=== PATIENT | female | born 1965 | race Caucasian/White ===

== ENCOUNTER 2017-08-18 18:40 | Inpatient (IN) | payer OTHER ==
[~2017-08-18] VITALS: Ht 162.6 cm; Wt 102.2 kg
--- NOTE | ~2017-08-18 | EKG ---
[place] [address] [facility] [employer] [place] [address] ELECTROCARDIOGRAM REPORT Name: KATHLEEN BOLANOS Room #: 241-P ADM IN M.R.#: [id number] Admission: 08/18/17 Attend Phys: Reji Quintero DO Discharge: Date of : 65 Report #: [id number] THIS REPORT FOR: //name// [facility] ED Test Date: 2017-08-18 Test Time: 18:51:47 Pat Name: KATHLEEN BOLANOS Department: Room: 241 Gender: F Foot Tender: Aviva BLUM : 1965 Requested By: Cayden Denise Order Number: [id number] MD: Galileo Crystal Measurements Intervals [place] Rate: 99 P: 56 VT: 165 QRS: 29 QRSD: 88 T: 26 QT: 373 QTc: 479 Interpretive Statements Sinus rhythm Poor R wave progression No previous ECG available for comparison Electronically Signed On 08-19-2017 14:29:03 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
--- NOTE | ~2017-08-18 | S ---
[facility] [place] [address] SURGICAL PATH RPT PROCEDURE Name: AMISHA BOLANOS Room #: [facility]- DIS IN M.R.#: [id number] Admission: 08/18/17 Date of : 65 Discharge: 08/26/17 Report #: [id number] Path Case #: [id number] PATHOLOGY REPORT COLLECTION DATE: 08/25/2017 RECEIVED DATE: 08/27/2017 SUBMITTING PHYS: Dr. Reji Quintero OTHER PHYS: SPECIMEN(S) RECEIVED: A.Peripheral smear * * * * * * * * * * * * FINAL DIAGNOSIS: Peripheral blood smear: - Severe macrocytic anemia, left shifted granulocytes and severe thrombocytopenia. (See comment) COMMENT: Overall, the peripheral blood has severe macrocytic anemia, left shifted granulocytes and severe thrombocytopenia. The WBC count is within the normal reference range. The etiology of the findings is unclear based entirely on slide review. Potential causes of macrocytic anemia include vitamin B12 and/or folate deficiency, liver and/or thyroid disease, and primary bone marrow disorders. Potential causes of thrombocytopenia include immune and non-immune platelet destruction, drug and/or toxic exposures, blood loss, dilutional and primary bone marrow disorders. The findings may be related to the patient's underlying medical condition (alcohol withdrawal and/or septic shock). Correlation with the clinical history and additional laboratory data is recommended. (CLW:sherry; 08/28/2017) PATHOLOGIST: Katharina Li M.D. REPORT ELECTRONICALLY SIGNED BY: Katharina Li M.D. DATE/TIME: 08/28/2017 16:46 * * * * * * * * * * * * MICROSCOPIC DESCRIPTION: CBC Data (08/25/17): WBC 4,800 /uL, RBC 1.84, hemoglobin 6.5 g/dL, hematocrit 20.1%, MCV 109.1 fL, MCH 35.3 pg, MCHC 32.3 g/dL, RDW 29%. Platelet count 46,000 /uL. Manual white blood cell differential: segs 61%, bands 7%, lymphs 18%, monos 5%, metas 3%, myelos 4%, pros 2%, and 2 NRBCs/100 white blood cells. Peripheral Blood Smear: Cytomorphological examination of the Newman's stained peripheral blood smear confirms the provided data. Red blood cells show severe [facility] [address] [place] [address] SURGICAL PATH RPT PROCEDURE Name: AMISHA BOLANOS Room #: 241-P DIS IN M.R.#: [id number] Admission: 08/18/17 Date of : 65 Discharge: 08/26/17 Report #: [id number] Path Case #: [id number] macrocytic anemia with moderate anisocytosis. No significant anisopoikilocytosis is identified. No schistocytes or microspherocytes are seen. White blood cells are predominantly segmented neutrophils and have mild reactive changes. There is a mild left shift with scattered myelocytes and metamyelocytes noted on scanning. No blasts or Shanon rods are seen on scanning. Lymphocytes are predominantly small, round, and mature appearing with condensed chromatin and scant cytoplasm with admixed large granular lymphocytes and reactive appearing lymphocytes. On scanning, no markedly atypical lymphoid cells are seen. Monocytes are mature. Platelets are markedly decreased in number and mainly normal in morphology with rare larger platelets noted. Rare nucleated red blood cells are seen. (CLW:sherry; 08/28/2017) GROSS PATHOLOGY: Received are three Newman's stained peripheral blood smears all labeled, "Long, Amisha." (CLW:mgr; 08/28/2017) CLINICAL HISTORY: 52-year-old woman with anemia and thrombocytopenia. Morphologic review of the peripheral blood smear is requested by the patient's physician. INITIAL CPT CODE(S): A; [place] Professional services performed by [facility] [employer] [facility] at [facility] [address], [place] [address] Technical services performed by [facility] at [address] [place] [address], [address], [place] [address]. [facility] [place] [address] PHONE: [phone] DIRECTOR: Ignacio Melendez M.D. * * * END OF REPORT * * *
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
--- NOTE | ~2017-08-18 | HC ---
[facility] [place] [address] CONSULTATION Name: KATHLEEN BOLANOS Room #: [facility]- ADM IN M.R.#: [id number] Admission: 08/18/17 Attend Phys: Reji Quintero DO Discharge: Date of : 65 Report #: [id number] THIS REPORT FOR: //name// CC: JANICE physician/PCP Reji Quintero TYPE OF REPORT: Infectious diseases consultation. REASON FOR CONSULTATION: I was asked to evaluate concerning shock and concern for underlying sepsis. HISTORY OF PRESENT ILLNESS: The patient is a 52-year old underlying history of alcohol abuse, depression who presented on 08/18/2017 with decreased mental status. EMS was brought to the house where she was found on the floor with a blood glucose of 36, was brought in through EMS, confused and lethargic. [place] most consistent with alcohol withdrawal syndrome. Drug screen showed benzodiazepines, but alcohol level was undetectable as well as Tylenol level. She was icteric and bilirubin was elevated along with her ammonia. Has had workup before for episodes of pancreatitis and stated that she did not have cirrhosis. She also smokes cigarettes. No travel. No injury. No gross aspiration noted. Since her hospitalization, she has developed more hypotension and hypothermia. Now on a warming blanket. Receiving bicarbonate drip. The patient would arouse, but could not give me any details of her history or review of systems. The patient now has a nasal cannula in place for 3 liters of oxygen supplementation. She has a right IJ catheter and indwelling Onofre catheter. There has been no nausea, vomiting or diarrhea reported. Her urine output has been reasonable up to this point in time. She has been tachycardic and blood pressure was low today and has received IV fluids. White count has been normal. Blood culture so far negative. Urinalysis had bacteriuria but urine culture was only with mixed jalil. ALLERGIES: None known. MEDICATIONS: As noted on her MAR, which were reviewed. She was started on vancomycin and Zosyn this evening. Previously was on metoprolol, losartan, Benadryl and Neurontin. PAST MEDICAL HISTORY: Alcoholism, pancreatitis, acute kidney injury, tobacco abuse, hypertension, depression and anxiety. FAMILY HISTORY: Heart disease and polymyositis. SOCIAL HISTORY: She smokes and drinks, lives with her . PHYSICAL EXAMINATION: [facility] [address] [facility] [place] [address] CONSULTATION Name: KATHLEEN BOLANOS Room #: [address] [place] [address] IN M.R.#: [id number] Admission: 08/18/17 Attend Phys: Reji Quintero DO Discharge: Date of : 65 Report #: [id number] VITAL SIGNS: Pulse is 124 and regular, blood pressure 98/70, CVP 8 on 3 liters of oxygen per nasal cannula with an ABG showing pO2 of 70, pCO2 of 28 and pH 7.38. She has a right IJ catheter and Onofre catheter. GENERAL: She is icteric. She is somnolent. She does arouse and will follow simple commands. HEENT: Mouth was dry. NECK: Supple. LUNGS: Clear. HEART: Tachycardic and regular. ABDOMEN: Soft and nontender. No hepatosplenomegaly or mass. EXTREMITIES: Unremarkable other than some bruising to her right leg. LABORATORY STUDIES: Sodium 144, potassium 2.9, bicarbonate 20 and creatinine 2. AST 355, ALT 175, alkaline phosphatase 251, bilirubin 9.6, GGTP 86 and albumin 1.5. INR of 3. Ammonia 69 and lactate 1.3. Lipase normal. Drug screen positive for benzodiazepines, negative for alcohol. Hemoglobin 7.5; platelet count 56,000; white count 3.1; MCV 110; segs 82% and bands 1%. Urinalysis, rare wbc's, many bacteria. Urine culture, mixed jalil. Blood cultures negative. Ultrasound of the abdomen showed fatty liver, small amount of fluid around the liver and small right kidney. RADIOLOGICAL DATA: CT of the head was negative. Chest x-ray shows left lower lobe atelectasis and infiltrate. IMPRESSION: A 52-year old presents with alcohol withdrawal syndrome, possibly aspiration to the left lower lobe. Now with shock, question whether this is related to infection. So far, cultures remain negative. The patient also has acute renal failure, metabolic acidosis and encephalopathy, which is toxic metabolic. Hepatic failure seems most likely driving this. RECOMMENDATIONS: We will continue broad antibiotic coverage, pending repeat cultures of blood. Follow chest x-ray. Pulmonary hygiene. Aspiration precautions. GI assistance. With her elevated bilirubin and INR, may need to consider further hepatic intervention. <ELECTRONICALLY SIGNED> By: Cayden Figueroa MD 08/22/17 0811 1843 2243 Cayden Figueroa MD /nt
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
--- NOTE | ~2017-08-18 | 2DMMODE ---
[facility] [address] [place] [address] 2 D/M-MODE ECHOCARDIOGRAM Name: KATHLEEN BOLANOS Room #: 241-P ADM IN M.R.#: [id number] Admission: 08/18/17 Attend Phys: Reji Quintero, Discharge: Date of : 65 Date of Service: 08/22/17 1155 Report #: [id number] THIS REPORT FOR: //name// APPROVED REPORT Study performed: 08/22/2017 12:11:13 EXAM: Comprehensive 2D, Doppler, and color-flow Echocardiogram Patient Location: ICU Room #: 241 Status: routine BSA: 2.02 HR: 115 bpm BP: 93/61 mmHg Rhythm: Tachycardia Other Information Study Quality: Adequate Indications Hypotension, hypoxemia, tachycardia, alcohol withdrawl. Hx: ETOH and tobacco abuse. HTN. 2D Dimensions RVDd: 28.01 mm LVEF(%): 67.25 (>50%) IVSd: 10.86 (7-11mm) LVOT Diam: 18.99 (18-24mm) LVDd: 33.39 mm PWd: 8.48 (7-11mm) Ascending Ao: 31.29 (22-36mm) LVDs: 21.27 (25-40mm) Aortic Root: 29.38 mm Cedeño's LVEF: 67.25 % Volumes Left Atrial Volume (Systole) Single Plane 4CH: 40.04 mL Single Plane 2CH: 46.07 mL LA ESV Index: 22.00 mL/m2 Aortic Valve AoV Peak Bulmaro.: 2.50 m/s AO Peak Gr.: 24.98 mmHg Mitral Valve E/A Ratio: 0.5 MV Decel. Time: 220.08 ms MV E Max Bulmaro.: 0.70 m/s [facility] [employer] [address] [place] [address] 2 D/M-MODE ECHOCARDIOGRAM Name: KATHLEEN BOLANOS Room #: [address] [place] [address] [place] [facility].#: [id number] Admission: 08/18/17 Attend Phys: Reji Quintero, Discharge: Date of : 65 Date of Service: 08/22/17 1155 Report #: [id number] MV A Bulmaro.: 1.44 m/s MV PHT: 63.82 ms IVRT: 72.66 ms Pulmonary Valve PV Peak Bulmaro.: 1.29 m/s PV Peak Gr.: 6.61 mmHg Tricuspid Valve TR Peak Bulmaro.: 2.75 m/s TR Peak Gr.: 30.33 mmHg Left Ventricle The left ventricle is normal size. There is normal LV segmental wall motion. There is normal left ventricular wall thickness. Left ventricular systolic function is hyperdynamic. LVEF is >70%. Mild diastolic dysfunction is present (impaired relaxation pattern). Right Ventricle The right ventricle is normal size. The right ventricular systolic function is normal. Atria The left atrium size is normal. The right atrium size is normal. Aortic Valve The aortic valve is normal in structure. No aortic regurgitation is present. There is no aortic valvular stenosis. Mitral Valve The mitral valve is normal in structure. Mild mitral regurgitation. Tricuspid Valve The tricuspid valve is normal in structure. Trace tricuspid regurgitation. Estimated PAP is 30mmHg plus the right atrial pressure. Pulmonic Valve The pulmonary valve is normal in structure. Trace pulmonic regurgitation. Great Vessels The aortic root is normal in size. IVC is not well visualized. [facility] [place] [address] 2 D/M-MODE ECHOCARDIOGRAM Name: KATHLEEN BOLANOS Room #: 241-P ADM IN M.R.#: [id number] Admission: 08/18/17 Attend Phys: Reji Quintero, Discharge: Date of : 65 Date of Service: 08/22/17 1155 Report #: [id number] Pericardium There is no pericardial effusion. Left pleural effusion noted. <Conclusion> The left ventricle is normal size. LVEF is >70%. The aortic valve is normal in structure. The mitral valve is normal in structure. Mild mitral regurgitation. The tricuspid valve is normal in structure. Trace tricuspid regurgitation. Estimated PAP is 30mmHg plus the right atrial pressure. The pulmonary valve is normal in structure. Trace pulmonic regurgitation. There is no pericardial effusion. Left pleural effusion noted. <ELECTRONICALLY SIGNED> By: Maulik Espinal MD 08/22/17 1155 1155 1155 Maulik Espinal MD /INF
[~2017-08-18 18:40] MED LIST: BENADRYL25 MG PO; COZAAR 50 MG TA50 M2 PO; NEURONTIN 300300 M1 PO; TOPROL XL100 MG PO
[2017-08-18 18:41] VITALS: BP 85/52
[2017-08-18 19:31] LABS: HEMOGLOBIN 9.8 gm/dL (12.0-15.0)
[2017-08-18 19:34] LABS: HEMATOCRIT 29.3 % (37.0-47.0); MCH 36.8 pg (26.0-34.0); MCHC 33.3 g/dL (28.0-37.0); MCV 110.7 fL (80.0-100.0); RBC 2.65 mil/uL (4.20-5.00); RDW 21.7 % (10.5-14.5); WBC 10.3 thou/uL (4.0-11.0)
[2017-08-18 19:35] LABS: BE(vivo) -15.2 mmol/L (-2 to +3); HCO3 9.9 mmol/L (22.0-26.0); sO2 75.8 % (92.0-98.0)
[2017-08-18 19:37] LABS: PO2 44.6 mmHg (80.0-100.0); pH 7.272 (7.360-7.450)
[2017-08-18 19:37] LABS: PLATELET COUNT 80 thou/uL (150-400)
[2017-08-18 19:44] LABS: BUN 17 mg/dL (7-18); CALCIUM 7.1 mg/dL (8.5-10.1); CHLORIDE 82 mmol/L (98-107); GLUCOSE 100 mg/dL (74-106)
[2017-08-18 19:48] LABS: ALBUMIN 1.7 g/dL (3.4-5.0); MAGNESIUM 1.3 mg/dL (1.8-2.4); SGOT 328 U/L (15-37); SGPT 155 U/L (30-65); TOTAL BILIRUBIN 8.1 mg/dL (<0.1-1.0); TOTAL PROTEIN 4.3 g/dL (6.4-8.2); TROPONIN-I < 0.04 ng/mL (<0.06)
[2017-08-18 19:49] LABS: ANION GAP 28 mmol/L (7-16)
[2017-08-18 19:54] LABS: CO2 8 mmol/L (21-32); POTASSIUM 2.7 mmol/L (3.5-5.1); SODIUM 118 mmol/L (136-145)
[2017-08-18 20:00] LABS: SALICYLATE < 2.8 mg/dL (2.8-20.0)
[2017-08-18 20:26] LABS: ABSOLUTE NEUTROPHILS 9.2 thou/uL (1.4-8.2)
[2017-08-18 20:27] LABS: ANISOCYTOSIS 2+; MACROCYTES 2+; POLYCHROMASIA 1+
[2017-08-18 20:33] LABS: URINE BILIRUBIN 3+ (Negative); URINE BLOOD 2+ (Negative); URINE CLARITY CLEAR; URINE COLOR YELLOW; URINE GLUCOSE-RANDOM* NEGATIVE (Negative); URINE KETONES NEGATIVE (Negative); URINE LEUKOCYTES-REFLEX NEGATIVE (Negative); URINE NITRITE-REFLEX NEGATIVE (Negative); URINE PROTEIN (DIPSTICK) TRACE (Negative)
[2017-08-18 20:37] LABS: ICTOTEST (BILI CONFIRMATORY) Positive (Negative)
[2017-08-18 20:41] LABS: AMP/METHAMP Negative (Negative); BARBITURATES Negative (Negative); BENZODIAZEPINES POSITIVE (Negative); COCAINE Negative (Negative); METHADONE Negative (Negative); OPIATES Negative (Negative); PCP Negative (Negative)
[2017-08-18 20:42] LABS: SQUAMOUS 0-3 Few /LPF (0-3)
[2017-08-18 20:43] LABS: BACTERIA-REFLEX >30 Many /HPF (None Seen); CASTS None Seen /LPF (None Seen); CRYSTALS None Seen /LPF (None Seen); URINE RBC 3-10 Few /HPF (0-2); URINE WBC-REFLEX 0-5 Rare /HPF (0-5)
[2017-08-18 21:10] VITALS: BP 76/44
[2017-08-18 21:30] VITALS: BP 98/84
[2017-08-18 22:30] VITALS: BP 82/68
[2017-08-18 22:37] LABS: CALCIUM 6.4 mg/dL (8.5-10.1); CREATININE 2.5 mg/dL (0.6-1.0); POTASSIUM 3.2 mmol/L (3.5-5.1)
[2017-08-18 22:41] LABS: ALBUMIN 1.6 g/dL (3.4-5.0); MAGNESIUM 1.8 mg/dL (1.8-2.4)
[2017-08-18 22:50] LABS: HCO3 9.9 mmol/L (22.0-26.0); PCO2 18.8 mmHg (35.0-45.0); PO2 169.7 mmHg (80.0-100.0); sO2 99.1 % (92.0-98.0)
[2017-08-18 23:00] VITALS: BP 117/79
[2017-08-18 23:30] VITALS: BP 147/72
[2017-08-19] VITALS (47 sets, daily range): BP systolic 67–143; BP diastolic 48–117
[2017-08-19 05:27] LABS: HEMATOCRIT 26.5 % (37.0-47.0); HEMOGLOBIN 8.5 gm/dL (12.0-15.0); MCH 35.8 pg (26.0-34.0); MCHC 32.2 g/dL (28.0-37.0); MCV 111.3 fL (80.0-100.0); RBC 2.38 mil/uL (4.20-5.00); RDW 21.7 % (10.5-14.5)
[2017-08-19 05:37] LABS: ALBUMIN 1.6 g/dL (3.4-5.0); ANION GAP 18 mmol/L (7-16); CALCIUM 6.2 mg/dL (8.5-10.1); CHLORIDE 92 mmol/L (98-107); CO2 15 mmol/L (21-32); CREATININE 2.7 mg/dL (0.6-1.0); MAGNESIUM 1.6 mg/dL (1.8-2.4); SGOT 359 U/L (15-37); SGPT 159 U/L (30-65); SODIUM 125 mmol/L (136-145); TOTAL BILIRUBIN 7.9 mg/dL (<0.1-1.0)
[2017-08-19 05:51] LABS: GLUCOSE 175 mg/dL (74-106)
[2017-08-19 05:54] LABS: BUN ND mg/dL (7-18); TOTAL PROTEIN ND g/dL (6.4-8.2)
[2017-08-19 05:55] LABS: POTASSIUM 2.8 mmol/L (3.5-5.1)
[2017-08-19 07:27] LABS: % SATURATION 117 % (20-39); IRON 96 ug/dL (50-170); TIBC 82 ug/dL (250-450)
[2017-08-19 09:42] LABS: INR 2.8; PROTIME 27.9 Seconds (9.3-11.4)
[2017-08-19 11:28] LABS: FOLIC ACID 8.3 ng/mL (8.6-58.9)
[2017-08-19 15:11] LABS: POTASSIUM 2.8 mmol/L (3.5-5.1)
[2017-08-20] VITALS (44 sets, daily range): BP systolic 94–152; BP diastolic 51–115
[2017-08-20 05:53] LABS: HEMATOCRIT 22.5 % (37.0-47.0); HEMOGLOBIN 7.4 gm/dL (12.0-15.0); MCH 36.4 pg (26.0-34.0); MCHC 32.9 g/dL (28.0-37.0); MCV 110.6 fL (80.0-100.0); PLATELET COUNT 66 thou/uL (150-400); RBC 2.03 mil/uL (4.20-5.00); RDW 22.7 % (10.5-14.5); WBC 4.4 thou/uL (4.0-11.0)
[2017-08-20 06:03] LABS: CALCIUM 6.7 mg/dL (8.5-10.1); CREATININE 2.5 mg/dL (0.6-1.0); POTASSIUM 3.9 mmol/L (3.5-5.1)
[2017-08-20 06:16] LABS: ABSOLUTE NEUTROPHILS 3.9 thou/uL (1.4-8.2); ANISOCYTOSIS 3+; MACROCYTES 3+; POLYCHROMASIA 2+
[2017-08-21] VITALS (60 sets, daily range): BP systolic 63–152; BP diastolic 31–113
[2017-08-21 04:47] LABS: CALCIUM 6.9 mg/dL (8.5-10.1); CREATININE 2.2 mg/dL (0.6-1.0); POTASSIUM 3.1 mmol/L (3.5-5.1)
[2017-08-21 04:48] LABS: HEMATOCRIT 23.7 % (37.0-47.0); RBC 2.15 mil/uL (4.20-5.00)
[2017-08-21 04:49] LABS: HEMOGLOBIN 7.8 gm/dL (12.0-15.0); MCH 36.4 pg (26.0-34.0); MCV 110.4 fL (80.0-100.0); PLATELET COUNT 60 thou/uL (150-400); RDW 22.8 % (10.5-14.5); WBC 3.3 thou/uL (4.0-11.0)
[2017-08-21 08:16] LABS: ABSOLUTE NEUTROPHILS 2.7 thou/uL (1.4-8.2)
[2017-08-21 08:18] LABS: ANISOCYTOSIS 3+; HYPOCHROMASIA 2+; POIKILOCYTOSIS 2+; POLYCHROMASIA 3+
[2017-08-21 08:23] LABS: MICROCYTES 2+; OVALOCYTES 1+
[2017-08-21 16:20] LABS: HEMOGLOBIN 7.5 gm/dL (12.0-15.0); RDW 23.2 % (10.5-14.5); WBC 3.1 thou/uL (4.0-11.0)
[2017-08-21 16:21] LABS: HEMATOCRIT 22.8 % (37.0-47.0); MCH 36.4 pg (26.0-34.0); MCHC 32.8 g/dL (28.0-37.0); MCV 110.9 fL (80.0-100.0); RBC 2.05 mil/uL (4.20-5.00)
[2017-08-21 16:31] LABS: CALCIUM 6.4 mg/dL (8.5-10.1); CREATININE 2.1 mg/dL (0.6-1.0)
[2017-08-21 16:39] LABS: BE(vivo) -7.7 mmol/L (-2 to +3); HCO3 16.4 mmol/L (22.0-26.0); PCO2 28.4 mmHg (35.0-45.0); PO2 70.9 mmHg (80.0-100.0); sO2 94.3 % (92.0-98.0)
[2017-08-21 16:53] LABS: APTT 34.2 Seconds (24.5-32.8); FIBRINOGEN 100.8 mg/dL (210-360)
[2017-08-21 16:57] LABS: ALBUMIN 1.5 g/dL (3.4-5.0); TOTAL BILIRUBIN 9.4 mg/dL (<0.1-1.0); TOTAL PROTEIN 3.4 g/dL (6.4-8.2)
[2017-08-21 17:00] LABS: POTASSIUM 2.9 mmol/L (3.5-5.1)
[2017-08-21 17:12] LABS: ALBUMIN 1.5 g/dL (3.4-5.0); DIRECT BILIRUBIN 8.5 mg/dL (<0.1-0.3); TOTAL BILIRUBIN 9.6 mg/dL (<0.1-1.0); TOTAL PROTEIN 3.6 g/dL (6.4-8.2)
[2017-08-21 18:18] LABS: AMYLASE 27 U/L (25-115); LIPASE 261 U/L (73-393)
[2017-08-21 18:18] LABS: URINE BILIRUBIN 3+ (Negative); URINE BLOOD 3+ (Negative); URINE CLARITY CLEAR; URINE COLOR YELLOW; URINE GLUCOSE-RANDOM* NEGATIVE (Negative); URINE KETONES NEGATIVE (Negative); URINE LEUKOCYTES-REFLEX NEGATIVE (Negative); URINE NITRITE-REFLEX NEGATIVE (Negative); URINE PROTEIN (DIPSTICK) NEGATIVE (Negative); URINE UROBILINOGEN 0.2 E.U./dl (0.2-1.0)
[2017-08-21 18:20] LABS: ICTOTEST (BILI CONFIRMATORY) Positive (Negative)
[2017-08-21 18:40] LABS: CASTS None Seen /LPF (None Seen); CRYSTALS None Seen /LPF (None Seen); SQUAMOUS 0-3 Few /LPF (0-3); URINE RBC 3-10 Few /HPF (0-2)
[2017-08-21 18:41] LABS: BACTERIA-REFLEX 1-9 Few /HPF (None Seen); URINE WBC-REFLEX 0-5 Rare /HPF (0-5)
[2017-08-21 18:59] LABS: URINE CREATININE-RANDOM* 125.3 mg/dL
[2017-08-21 21:06] LABS: CALCIUM 6.1 mg/dL (8.5-10.1); CREATININE 2.1 mg/dL (0.6-1.0)
[2017-08-22] VITALS (41 sets, daily range): BP systolic 81–122; BP diastolic 44–99
[2017-08-22 00:59] LABS: CREATININE 2.1 mg/dL (0.6-1.0); POTASSIUM 3.2 mmol/L (3.5-5.1)
[2017-08-22 01:00] LABS: CALCIUM 5.7 mg/dL (8.5-10.1)
[2017-08-22 05:29] LABS: HEMATOCRIT 23.8 % (37.0-47.0); HEMOGLOBIN 7.6 gm/dL (12.0-15.0); MCH 36.1 pg (26.0-34.0)
[2017-08-22 05:30] LABS: MCV 112.9 fL (80.0-100.0); RBC 2.11 mil/uL (4.20-5.00); RDW 23.3 % (10.5-14.5); WBC 3.9 thou/uL (4.0-11.0)
[2017-08-22 05:42] LABS: ALBUMIN 1.4 g/dL (3.4-5.0); CREATININE 2.2 mg/dL (0.6-1.0); MAGNESIUM 1.3 mg/dL (1.8-2.4); PHOSPHORUS 0.7 mg/dL (2.5-4.9); POTASSIUM 3.4 mmol/L (3.5-5.1)
[2017-08-22 05:55] LABS: ALBUMIN 1.4 g/dL (3.4-5.0); DIRECT BILIRUBIN 8.8 mg/dL (<0.1-0.3); TOTAL BILIRUBIN 10.1 mg/dL (<0.1-1.0); TOTAL PROTEIN 3.5 g/dL (6.4-8.2)
[2017-08-22 06:03] LABS: CALCIUM 5.7 mg/dL (8.5-10.1)
[2017-08-22 07:06] LABS: ABSOLUTE NEUTROPHILS 3.3 thou/uL (1.4-8.2); NUCLEATED RBCS 6 /100WBC; POLYCHROMASIA 1+
[2017-08-22 07:07] LABS: ANISOCYTOSIS 3+; MACROCYTES 3+
[2017-08-22 07:12] LABS: PLATELET COUNT 60 thou/uL (150-400)
[2017-08-22 07:22] LABS: BE(vivo) -5.3 mmol/L (-2 to +3); HCO3 18.5 mmol/L (22.0-26.0); PCO2 28.9 mmHg (35.0-45.0); PO2 74.6 mmHg (80.0-100.0); pH 7.423 (7.360-7.450); sO2 95.5 % (92.0-98.0)
[2017-08-22 22:18] LABS: HEMATOCRIT 25.3 % (37.0-47.0); HEMOGLOBIN 8.1 gm/dL (12.0-15.0)
[2017-08-23] VITALS (48 sets, daily range): BP systolic 76–146; BP diastolic 46–119
[2017-08-23 04:57] LABS: HEMOGLOBIN 7.1 gm/dL (12.0-15.0); RBC 1.95 mil/uL (4.20-5.00); WBC 4.7 thou/uL (4.0-11.0)
[2017-08-23 04:59] LABS: HEMATOCRIT 22.2 % (37.0-47.0); MCH 36.3 pg (26.0-34.0); MCHC 31.9 g/dL (28.0-37.0); MCV 113.9 fL (80.0-100.0); RDW 25.1 % (10.5-14.5)
[2017-08-23 05:12] LABS: INR 1.8; PROTIME 18.7 Seconds (9.3-11.4)
[2017-08-23 05:17] LABS: ALBUMIN 1.8 g/dL (3.4-5.0); CREATININE 2.4 mg/dL (0.6-1.0); POTASSIUM 3.3 mmol/L (3.5-5.1); TOTAL BILIRUBIN 11.2 mg/dL (<0.1-1.0); TOTAL PROTEIN 4.4 g/dL (6.4-8.2)
[2017-08-23 05:19] LABS: BE(vivo) -3.9 mmol/L (-2 to +3); HCO3 20.1 mmol/L (22.0-26.0); PCO2 31.8 mmHg (35.0-45.0); PO2 55.3 mmHg (80.0-100.0); pH 7.419 (7.360-7.450); sO2 89.8 % (92.0-98.0)
[2017-08-23 05:21] LABS: CALCIUM 5.4 mg/dL (8.5-10.1)
[2017-08-23 09:10] LABS: ABSOLUTE NEUTROPHILS 3.9 thou/uL (1.4-8.2); MYELOCYTES 1 %; NUCLEATED RBCS 8 /100WBC
[2017-08-23 09:11] LABS: POLYCHROMASIA 1+
[2017-08-23 09:12] LABS: ANISOCYTOSIS 3+; MACROCYTES 2+
[2017-08-23 09:13] LABS: PLATELET COUNT 65 thou/uL (150-400)
[2017-08-23 11:34] LABS: HEMOGLOBIN 6.8 gm/dL (12.0-15.0)
[2017-08-23 11:36] LABS: HEMATOCRIT 20.9 % (37.0-47.0)
[2017-08-23 19:38] LABS: HEMATOCRIT 24.3 % (37.0-47.0)
[2017-08-24] VITALS (32 sets, daily range): BP systolic 85–131; BP diastolic 67–98
[2017-08-24 00:04] LABS: HEMOGLOBIN 7.5 gm/dL (12.0-15.0)
[2017-08-24 00:07] LABS: HEMATOCRIT 22.7 % (37.0-47.0)
[2017-08-24 05:20] LABS: HEMATOCRIT 22.7 % (37.0-47.0); HEMOGLOBIN 7.2 gm/dL (12.0-15.0); MCH 34.6 pg (26.0-34.0); MCHC 31.6 g/dL (28.0-37.0); MCV 109.7 fL (80.0-100.0); RBC 2.07 mil/uL (4.20-5.00); RDW 28.8 % (10.5-14.5); WBC 4.9 thou/uL (4.0-11.0)
[2017-08-24 05:30] LABS: BE(vivo) -6.8 mmol/L (-2 to +3); HCO3 18.7 mmol/L (22.0-26.0); PCO2 37.5 mmHg (35.0-45.0); PO2 79.5 mmHg (80.0-100.0); sO2 94.9 % (92.0-98.0)
[2017-08-24 05:31] LABS: pH 7.316 (7.360-7.450)
[2017-08-24 05:34] LABS: ALBUMIN 2.7 g/dL (3.4-5.0); ANION GAP 16 mmol/L (7-16); BUN 11 mg/dL (7-18); CHLORIDE 118 mmol/L (98-107); CO2 18 mmol/L (21-32); CREATININE 2.2 mg/dL (0.6-1.0); GLUCOSE 76 mg/dL (74-106); PHOSPHORUS 2.5 mg/dL (2.5-4.9); POTASSIUM 3.1 mmol/L (3.5-5.1); SGOT 174 U/L (15-37); SGPT 69 U/L (30-65); SODIUM 152 mmol/L (136-145); TOTAL BILIRUBIN 9.5 mg/dL (<0.1-1.0); TOTAL PROTEIN 4.1 g/dL (6.4-8.2)
[2017-08-24 05:36] LABS: CALCIUM < 5.0 mg/dL (8.5-10.1)
[2017-08-24 05:49] LABS: INR 1.7; PROTIME 17.3 Seconds (9.3-11.4)
[2017-08-24 05:53] LABS: ABSOLUTE NEUTROPHILS 3.7 thou/uL (1.4-8.2); ANISOCYTOSIS 3+; HYPOCHROMASIA 1+; MACROCYTES 2+; MICROCYTES 1+; MYELOCYTES 1 %; NUCLEATED RBCS 5 /100WBC; POLYCHROMASIA OCCASIONAL
[2017-08-24 05:54] LABS: LARGE PLATELETS RARE; PLATELET COUNT 58 thou/uL (150-400)
[2017-08-24 12:10] LABS: HEMOGLOBIN 7.4 gm/dL (12.0-15.0)
[2017-08-24 12:12] LABS: HEMATOCRIT 22.7 % (37.0-47.0)
[2017-08-24 18:21] LABS: HEMATOCRIT 22.5 % (37.0-47.0); HEMOGLOBIN 7.3 gm/dL (12.0-15.0)
[2017-08-25] VITALS (68 sets, daily range): BP systolic 70–140; BP diastolic 25–108
[2017-08-25 00:42] LABS: HEMATOCRIT 20.7 % (37.0-47.0); HEMOGLOBIN 6.7 gm/dL (12.0-15.0)
[2017-08-25 05:36] LABS: BE(vivo) -9.8 mmol/L (-2 to +3); HCO3 16.6 mmol/L (22.0-26.0); PCO2 38.2 mmHg (35.0-45.0); PO2 105.9 mmHg (80.0-100.0); sO2 97.1 % (92.0-98.0)
[2017-08-25 05:38] LABS: HEMOGLOBIN 6.5 gm/dL (12.0-15.0)
[2017-08-25 05:39] LABS: pH 7.255 (7.360-7.450)
[2017-08-25 05:40] LABS: HEMATOCRIT 20.1 % (37.0-47.0); MCH 35.3 pg (26.0-34.0); MCHC 32.3 g/dL (28.0-37.0); MCV 109.1 fL (80.0-100.0); PLATELET COUNT 46 thou/uL (150-400); RBC 1.84 mil/uL (4.20-5.00); WBC 4.8 thou/uL (4.0-11.0)
[2017-08-25 05:52] LABS: ALBUMIN 3.6 g/dL (3.4-5.0); CALCIUM 6.6 mg/dL (8.5-10.1); CREATININE 2.7 mg/dL (0.6-1.0); POTASSIUM 3.7 mmol/L (3.5-5.1); TOTAL BILIRUBIN 12.9 mg/dL (<0.1-1.0)
[2017-08-25 06:10] LABS: TOTAL PROTEIN 5.1 g/dL (6.4-8.2)
[2017-08-25 06:56] LABS: METAMYELOCYTES 3 %; MYELOCYTES 4 %
[2017-08-25 06:57] LABS: IMMATURE MONONUCLEARS 0 %; MACROCYTES 2+; NUCLEATED RBCS 2 /100WBC; PROMYELOCYTES 2 %
[2017-08-25 06:58] LABS: PLATELET ESTIMATE DECREASED
[2017-08-25 07:13] LABS: ANISOCYTOSIS 3+; POLYCHROMASIA 3+
[2017-08-25 17:26] LABS: BE(vivo) -8.9 mmol/L (-2 to +3); HCO3 17.1 mmol/L (22.0-26.0); PCO2 37.6 mmHg (35.0-45.0); PO2 88.4 mmHg (80.0-100.0); pH 7.276 (7.360-7.450); sO2 95.7 % (92.0-98.0)
[2017-08-25 20:11] LABS: BE(vivo) -9.2 mmol/L (-2 to +3); HCO3 17.3 mmol/L (22.0-26.0); PCO2 39.8 mmHg (35.0-45.0); PO2 110.8 mmHg (80.0-100.0); pH 7.255 (7.360-7.450); sO2 97.4 % (92.0-98.0)
[2017-08-26] VITALS (15 sets, daily range): BP systolic 111–139; BP diastolic 79–101
[2017-08-26 05:30] LABS: BE(vivo) -9.2 mmol/L (-2 to +3); PCO2 37.8 mmHg (35.0-45.0); PO2 103.2 mmHg (80.0-100.0)
[2017-08-26 05:45] LABS: HEMATOCRIT 22.5 % (37.0-47.0); HEMOGLOBIN 7.4 gm/dL (12.0-15.0); MCH 34.5 pg (26.0-34.0); MCHC 32.6 g/dL (28.0-37.0); MCV 105.6 fL (80.0-100.0); RBC 2.13 mil/uL (4.20-5.00); RDW 27.4 % (10.5-14.5); WBC 5.5 thou/uL (4.0-11.0)
[2017-08-26 06:01] LABS: ALBUMIN 4.2 g/dL (3.4-5.0); CALCIUM 8.1 mg/dL (8.5-10.1); CREATININE 2.9 mg/dL (0.6-1.0); PHOSPHORUS 3.7 mg/dL (2.5-4.9); POTASSIUM 3.8 mmol/L (3.5-5.1); TOTAL BILIRUBIN 14.4 mg/dL (<0.1-1.0)
[2017-08-26 06:16] LABS: TOTAL PROTEIN 5.6 g/dL (6.4-8.2)
[2017-08-27 04:14] LABS: ABSOLUTE NEUTROPHILS 3.3 thou/uL (1.4-8.2)
== END 2017-08-26 13:50 | disposition short-term general hospital (02) | DRG 871 ==
LOC: ER 18:40 → EROBS 20:24 → ICU 20:24
PROVIDERS: Emergency Medicine; Family Medicine; Hospitalist; Internal Medicine Gastroenterology; Internal Medicine Nephrology; Internal Medicine Pulmonary Disease; Nurse Practitioner Acute Care
PROC: 02H633Z Insertion of Infusion Device into Right Atrium, Percutaneous Approach (ICD-10-PCS; 2017-08-19)
PROC: B244ZZZ Ultrasonography of Right Heart (ICD-10-PCS; 2017-08-19)
PROC: 30233L1 Transfusion of Nonautologous Fresh Plasma into Peripheral Vein, Percutaneous Approach (ICD-10-PCS; 2017-08-22)
PROC: 30233N1 Transfusion of Nonautologous Red Blood Cells into Peripheral Vein, Percutaneous Approach (ICD-10-PCS; 2017-08-23)
PROC: 5A09357 Assistance with Respiratory Ventilation, Less than 24 Consecutive Hours, Continuous Positive Airway Pressure (ICD-10-PCS; 2017-08-23)
PROC: 02HV33Z Insertion of Infusion Device into Superior Vena Cava, Percutaneous Approach (ICD-10-PCS; principal; 2017-08-24)
PROC: B548ZZA Ultrasonography of Superior Vena Cava, Guidance (ICD-10-PCS; principal; 2017-08-24)
PROC: 5A09357 Assistance with Respiratory Ventilation, Less than 24 Consecutive Hours, Continuous Positive Airway Pressure (ICD-10-PCS; 2017-08-24)
PROC: 30233K1 Transfusion of Nonautologous Frozen Plasma into Peripheral Vein, Percutaneous Approach (ICD-10-PCS; 2017-08-25)
PROC: 5A1935Z Respiratory Ventilation, Less than 24 Consecutive Hours (ICD-10-PCS; 2017-08-25)
PROC: 0BH17EZ Insertion of Endotracheal Airway into Trachea, Via Natural or Artificial Opening (ICD-10-PCS; 2017-08-25)
PROC: 5A09357 Assistance with Respiratory Ventilation, Less than 24 Consecutive Hours, Continuous Positive Airway Pressure (ICD-10-PCS; 2017-08-25)
DX: A41.9 Sepsis, unspecified organism (principal); E43 Unspecified severe protein-calorie malnutrition; N17.9 Acute kidney failure, unspecified; G92 Toxic encephalopathy; J18.9 Pneumonia, unspecified organism; J96.01 Acute respiratory failure with hypoxia; E87.1 Hypo-osmolality and hyponatremia; F33.9 Major depressive disorder, recurrent, unspecified; D68.9 Coagulation defect, unspecified; D61.818 Other pancytopenia; F10.231 Alcohol dependence with withdrawal delirium; K92.2 Gastrointestinal hemorrhage, unspecified; E87.0 Hyperosmolality and hypernatremia; E87.6 Hypokalemia; E83.42 Hypomagnesemia; T68.XXXA Hypothermia, initial encounter; D53.9 Nutritional anemia, unspecified; E80.6 Other disorders of bilirubin metabolism; N18.9 Chronic kidney disease, unspecified; F41.9 Anxiety disorder, unspecified; Z82.49 Family history of ischemic heart disease and other diseases of the circulatory system; K72.90 Hepatic failure, unspecified without coma; K70.10 Alcoholic hepatitis without ascites; F17.210 Nicotine dependence, cigarettes, uncomplicated; K70.30 Alcoholic cirrhosis of liver without ascites; I12.9 Hypertensive chronic kidney disease with stage 1 through stage 4 chronic kidney disease, or unspecified chronic kidney disease; R74.0 Nonspecific elevation of levels of transaminase and lactic acid dehydrogenase [LDH]; I95.9 Hypotension, unspecified; E86.0 Dehydration; E16.2 Hypoglycemia, unspecified; R65.20 Severe sepsis without septic shock; E87.70 Fluid overload, unspecified; E83.39 Other disorders of phosphorus metabolism; Z68.38 Body mass index [BMI] 38.0-38.9, adult; Z79.899 Other long term (current) drug therapy; Z71.6 Tobacco abuse counseling
CPT/HCPCS: 10078